=== PATIENT | female | born 1945 | race Caucasian/White ===

== ENCOUNTER 2018-11-21 14:00 | Outpatient (CLI) | payer MEDICAID ==
[~2018-11-21] VITALS: Ht 160 cm; Wt 69.9 kg
[2018-11-21 14:10] VITALS: BP 128/71
--- NOTE | 2018-11-21 15:05 | GI Initial Consult Note ---
History of Present Illness General Date patient seen: Nov 21, 2018 Time patient seen: 15:01 Referring physician: HMO Reason for Consultation: ABDOMINAL PAIN Present Illness HPI This is a 72-year-old female patient who presents today with complaint of left- sided abdominal pain times 6 weeks. In addition the patient complains of constant abdominal bloating. States that her digestion is slow. The patient had an abdominal ultrasound performed, noted with a fatty liver. States that she had a colonoscopy back in 2017 noted with diverticulosis. Abdominal pelvic CT was reviewed noted with no acute process. Denies any unintentional weight loss or changes in dietary habits. No signs of abuse or neglect. Patient is not fall risk. Allergies: Coded Allergies: IODINE (Verified Allergy, Mild, Rash, 11/21/18) Patient History History Provided By: Patient, Medical Record [facility] Narrative Hypertension Cholesterol Osteopenia Past surgical history Hemorrhoidal Pertinent Family History: none Social History Narrative The patient stated that he has quit his drinking and smoking. Review of Systems All Other Systems: negative except mentioned in HPI Physical Exam Temperature 98.5 Blood pressure 128/71 Pulse 80 96% room air Height 5 3 Weight 154 pounds Sp02 EP Interpretation: reviewed, normal General Appearance: well appearing, no apparent distress, alert Head: normocephalic EENT: PERRL/EOMI, normal ENT inspection Neck: supple Respiratory: normal breath sounds, no respiratory distress Cardiovascular: normal rate Gastrointestinal: normal inspection, non tender, soft, normal bowel sounds, non -distended Rectal: deferred Genitourinary: no CVA tenderness Musculoskeletal: normal inspection, back normal Neurologic: normal inspection, alert, oriented x3, responsive Psychiatric: normal inspection, judgement/insight normal, memory normal Skin: normal inspection, normal color, no rash, warm/dry, palpation normal, well hydrated Lymphatic: normal inspection, no adenopathy GI: Plan Problems: (1) Abdominal pain (2) Small intestinal bacterial overgrowth (3) Fatty liver (4) Diverticulosis (5) Hypertension (6) Hyperlipidemia (7) Osteopenia (8) Hemorrhoids Plan Abdominal pelvis CT reviewed with patient Abdominal pain with unknown etiology We will prescribe the patient Xifaxan for 2 weeks Return to clinic as needed Seen with Dr. Limon. Thank you for this patient referral. Nayeli Manley NP Nov 21, 2018 15:05
[2018-11-22] MEDS ORDERED: ASPIRIN EC81 MG ORAL (13:19)
[2018-11-22] MEDS ORDERED: OMEPRAZOLE20 M2 ORAL (13:19)
[2018-11-22] MEDS ORDERED: FOSAMAX70 MG ORAL (13:19)
[2018-11-22] MEDS ORDERED: SYNTHROID25 MCG ORAL (13:19)
[2018-11-22] MEDS ORDERED: LIPITOR20 MG ORAL (13:19)
[2018-11-22] MEDS ORDERED: TRIAMTERENE-HC1 EAC7 ORAL (13:19)
[2018-11-22] MEDS ORDERED: OYSCO 500+D TA1 EAC1 PO (13:19)
== END 2018-11-21 14:30 | disposition home or self-care (01) ==
LOC: PAN 14:00
DX: R10.9 Unspecified abdominal pain (principal); E78.5 Hyperlipidemia, unspecified; K64.9 Unspecified hemorrhoids; M85.80 Other specified disorders of bone density and structure, unspecified site; I10 Essential (primary) hypertension; K57.90 Diverticulosis of intestine, part unspecified, without perforation or abscess without bleeding; K76.0 Fatty (change of) liver, not elsewhere classified; B96.89 Other specified bacterial agents as the cause of diseases classified elsewhere; Z91.041 Radiographic dye allergy status

== ENCOUNTER 2019-04-11 09:16 | Outpatient (CLI) | payer OTHER ==
[~2019-04-11 09:16] MED LIST: ASPIRIN EC81 MG ORAL; FOSAMAX70 MG ORAL; LIPITOR20 MG ORAL; OMEPRAZOLE20 M2 ORAL; OYSCO 500+D TA1 EAC1 PO; SYNTHROID25 MCG ORAL; TRIAMTERENE-HC1 EAC7 ORAL
--- NOTE | 2019-04-11 09:50 | General Progress Note ---
Assessment/Plan Assessment/Plan: (1) Abdominal pain (2) Small intestinal bacterial overgrowth (3) Fatty liver (4) Diverticulosis (5) Hypertension (6) Hyperlipidemia (7) Osteopenia (8) Hemorrhoids Plan Abdominal pelvis CT reviewed with patient Abdominal pain with unknown etiology We will repeat prescribe the patient Xifaxan for 2 weeks VSL #3 post above last EGd and colonoscopy 2017 refill omeprazole Return to clinic as needed Subjective ROS Limited/Unobtainable: Yes Allergies: Coded Allergies: IODINE (Verified Allergy, Mild, Rash, 11/21/18) Objective General Appearance: alert EENT: normal ENT inspection Cardiovascular: normal rate Respiratory/Chest: lungs clear Abdomen: normal bowel sounds, non tender, soft Extremities: non-tender Rahat Limon MD April 11, 2019 09:50
[2019-04-11 16:05] VITALS: BP 110/72
== END 2019-04-11 11:16 | disposition home or self-care (01) ==
LOC: PAN 09:16
DX: R10.9 Unspecified abdominal pain (principal); K76.0 Fatty (change of) liver, not elsewhere classified; K57.90 Diverticulosis of intestine, part unspecified, without perforation or abscess without bleeding; I10 Essential (primary) hypertension; E78.5 Hyperlipidemia, unspecified; M85.80 Other specified disorders of bone density and structure, unspecified site; K64.9 Unspecified hemorrhoids; Z91.041 Radiographic dye allergy status; A04.9 Bacterial intestinal infection, unspecified